=== PATIENT | male | born 1950 | race Caucasian/White ===

== ENCOUNTER 2018-12-01 08:49 | Emergency (ER) | payer SELFPAY | END 2018-12-01 09:48 | disposition home or self-care (01) | LOC: E/R 08:49 | DX: I10 Essential (primary) hypertension (principal); L03.114 Cellulitis of left upper limb | CPT/HCPCS: 99283 ==

== ENCOUNTER 2018-12-08 08:48 | Emergency (ER) | payer SELFPAY ==
[2018-12-08] MEDS: BACITRACIN 0.5%/ZINC 28.35 GM OINT TOP (09:19)
== END 2018-12-08 09:45 | disposition home or self-care (01) ==
LOC: FTE 08:48
DX: R21 Rash and other nonspecific skin eruption (principal)
CPT/HCPCS: 99282